=== PATIENT | female | born 1960 | race Caucasian/White ===

== ENCOUNTER 2019-10-26 08:37 | Outpatient (CLI) | payer BC | END 2019-10-26 23:59 | disposition home or self-care (01) | LOC: CFH 08:37 | PROVIDERS: ATTEND Family Medicine | DX: Z12.31 Encounter for screening mammogram for malignant neoplasm of breast (principal); Z13.820 Encounter for screening for osteoporosis; Z78.0 Asymptomatic menopausal state | CPT/HCPCS: 77080; 77067 ==